=== PATIENT | female | born 1970 | race Caucasian/White ===

== ENCOUNTER 2017-11-14 13:26 | Emergency (ER) | payer OTHER ==
--- NOTE | 2017-11-14 14:42 | RAD ---
INDICATION: Right wrist injury. TECHNIQUE: 2 views of the right wrist were obtained. FINDINGS: There is prominent diffuse soft tissue swelling. There is an oblique comminuted fracture of the distal metaphysis of the radius. The distal fracture fragment is displaced one shaft diameter anterior. The fracture fragments are overriding and there is anterior angulation of the distal fragment relative the proximal fragment. There is also a slightly displaced fracture of the distal ulna including avulsion of the ulnar styloid process. IMPRESSION: 1. OBLIQUE, COMMINUTED, DISPLACED, ANGULATED FRACTURE OF THE DISTAL RADIAL METAPHYSIS. 2. FRACTURE OF THE DISTAL ULNA.
[2017-11-14] MEDS ORDERED: KETAMINE HCL* 50 MG/ML 10 ML VIAL IV ONE (14:47)
[2017-11-14] MEDS ORDERED: Ondansetron INJ* 2 MG/ML VIAL ONE (15:19)
--- NOTE | 2017-11-14 15:47 | ED ---
Upper Extremity Pain - HPI Summary HPI Summary: Patient is a 47 y/o F BIBA w/ c/o right wrist pain onsetting today D[facility] [employer] [facility]. EMS provided 10mg of morphine IM and 4mg of zofran PO. She states she was walking in a park, tripped, and landed on car park cement. She landed on her right wrist. Patient is right handed. She notes abrasion to the wrist and states she cannot move her fingers but is capable of feeling touch. Right knee abrasion is noted as well. On triage, pain is rated 8/10 and it is noted that movement aggravates pain, nothing is noted to alleviate Sx. Home medications and allergies are reviewed. PMHx of multiple sclerosis is reported, diabetes is denied. She cannot remember date of her last tetanus shot. - History of Current Complaint Chief Complaint: EDExtremityUpper Stated Complaint: FALL Time Seen by Provider: 11/14/17 13:27 Hx Obtained From: Patient Mechanism Of Injury: Fall From A Standing Position Onset/Duration: Still Present Timing: Constant Severity Currently: Severe - 8/10 on triage Pain Location: Wrist - right wrist Aggravating Factor(s): Movement Alleviating Factor(s): Nothing - Allergies/Home Medications Allergies/Adverse Reactions: Allergies Allergy/AdvReac Type Severity Reaction Status Date / Time No Known Allergies Allergy Verified 11/14/17 14:24 Home Medications: Home Medications Dexamethasone 11/14/17 [History] Fluoxetine 11/14/17 [History] Ocrevus 11/14/17 [History] Omeprazole 20 mg PO DAILY 11/14/17 [History Confirmed 11/14/17] PARoxetine HCL TAB* [Paxil TAB*] 20 mg PO DAILY 11/14/17 [History Confirmed ] Wellbutrin Sr 11/14/17 [History] PMH/Surg Hx/FS Hx/Imm Hx Endocrine/Hematology History: Denies: Hx Diabetes Sensory History: Denies: Hx Legally Blind Opthamlomology History: Denies: Hx Legally Blind Neurological History: Reports: Other Neuro Impairments/Disorders - multiple sclerosis - Immunization History Date of Tetanus Vaccine: 2014 Infectious Disease History: No Infectious Disease History: Denies: Traveled Outside the [place] in Last 30 Days - Family History Known Family History: Negative: Blood Disorder - Social History Alcohol Use: Occasionally Substance Use Type: Reports: None Smoking Status (MU): Never Smoked Tobacco Review of Systems Negative: Fever - on vitals, temp is 97.7 F Positive: Other - right wrist pain Positive: Other - abrasion at right wrist and right knee All Other Systems Reviewed And Are Negative: Yes Physical Exam - Summary Physical Exam Summary: Appearance: Well appearing, no pain distress Skin: warm, dry, reflects adequate perfusion; right knee abrasion and right wrist abrasion Head/face: normal Eyes: EOMI, ZAMZAM ENT: normal Neck: supple, non-tender Respiratory: CTA, breath sounds present Cardiovascular: RRR, pulses symmetrical Abdomen: non-tender, soft Bowel Sounds: present Musculoskeletal: tender diffusely at right wrist and deformity at right wrist with swelling; abrasion at right forearm with some dirt in it; limited range of motion at right wrist Neuro: normal, sensory motor intact, A&Ox3, intact light touch and two point touch Triage Information Reviewed: Yes Vital Signs On Initial Exam: Initial Vitals Temp Pulse Resp BP Pulse Ox 97.7 F 86 16 102/62 97 11/14/17 13:34 11/14/17 13:34 11/14/17 13:34 11/14/17 13:34 11/14/17 13:34 Vital Signs Reviewed: Yes Procedures - Procedure Summary Procedure Summary: Procedural sedation: The patient was consented and a timeout was performed. An IV was placed and the patient was placed on full cardiopulmonary monitoring and including end-tidal CO2. She was given 1 mg/kg of ketamine for a total of 100 mg. This provided adequate analgesia, anesthesia allowing the orthopedic surgeon to successfully perform the fracture reduction without incident. She tolerated this well and recovered uneventfully. - Joint Reduction Right Conscious Sedation: Yes Diagnostics - Vital Signs Vital Signs Temp Pulse Resp BP Pulse Ox 11/14/17 13:34 97.7 F 86 16 102/62 97 - Laboratory Lab Statement: Any lab studies that have been ordered have been reviewed, and results considered in the medical decision making process. - Radiology right wrist x-ray Xray Interpretation: Positive (See Comments) Radiology Interpretation Completed By: Radiologist - IMPRESSION: 1. OBLIQUE, COMMINUTED, DISPLACED, ANGULATED FRACTURE OF THE DISTAL RADIAL METAPHYSIS. 2. FRACTURE OF THE DISTAL ULNA. THIS REPORT WAS REVIEWED BY ED PHYSICIAN. right wrist x-ray sp external reduction Xray Interpretation: Positive (See Comments) Radiology Interpretation Completed By: Radiologist - IMPRESSION: STATUS POST EXTERNAL REDUCTION, IMPROVED ALIGNMENT AND POSITIONING OF THE FRACTURE FRAGMENTS. THIS REPORT WAS REVIEWED BY ED PHYSICIAN right forearm x-ray Xray Interpretation: Positive (See Comments) Radiology Interpretation Completed By: Radiologist - IMPRESSION: COMMINUTED FRACTURES OF THE DISTAL RADIUS AND ULNA, STATUS POST EXTERNAL REDUCTION. THIS REPORT WAS REVIEWED BY ED PHYSICIAN. Re-Evaluation - Re-Evaluation First Eval Re-Evaluation Time: 15:01 Comment: Patient was given tetanus shot. She had been treated for pain DIE [facility]. Dr. Mittal came to ED; he did a closed reduction of the wrist. Dr. Jerez did a conscious sedation. Second Eval Re-Evaluation Time: 16:27 Change: Improved Comment: Closed reduction of patient's wrist produced improvement; she will be discharged to home and follow up with Dr. Mittal. She is agreeable with this plan. Course/Dx - Course Course Of Treatment: Patient with fracture deformity and dislocation of the ulnar carpal joint. She was given tetanus shot and had been treated for discomfort by medics prior to arrival. Her wounds were cleansed here. I provided procedural sedation while the orthopedic surgeon successfully reduced the fracture. He will follow her up for possible operative plan - Diagnoses Provider Diagnoses: Fracture of right wrist, Dislocation of right wrist, Abrasions of multiple sites - Physician Notifications Discussed Care of Patient With: Nathaniel Mittal Time Discussed With Above Provider: 14:28 Instructed by Provider To: Other - Dr. Mittal was consulted on patient's case at 1428; he will come to see patient in person. Discharge - Sign-Out/Discharge Documenting (check all that apply): Patient Departure - discharge - Discharge Plan Condition: Improved Disposition: HOME Prescriptions: Hydrocodone/Acetaminophen [Hydrocodone-Acetamin 5-325 mg] 1 each PO Q6H PRN #12 tablet MDD 4 PRN Reason: Severe Pain Naproxen [Naproxen 500 mg tab] 500 mg PO BID PRN #12 tablet PRN Reason: Pain Patient Education Materials: Wrist Fracture in Adults (ED) Referrals: Nathaniel Mittal MD [Medical Doctor] - Additional Instructions: Keep splint clean and dry. Ice for comfort. Follow up with Dr. Mittal as discussed. Return if worse, new symptoms or other concerns. - Billing Disposition and Condition Condition: IMPROVED Disposition: Home - Attestation Statements Document Initiated by Jeree: Yes Documenting Scribe: Naveen Berry Provider For Whom Scribe is Documenting (Include Credential): Brayan Jerez MD Scribe Attestation: I, Naveen Berry, scribed for Brayan Jerez MD on 11/14/17 at 1854. Scribe Documentation Reviewed: Yes Provider Attestation: The documentation as recorded by the chioibNaveen rodney accurately reflects the service I personally performed and the decisions made by me, Brayan Jerez MD
[2017-11-14] MEDS ORDERED: oxyCODONE/Acetamin 5/325 MG* TAB PO ONE (16:07)
--- NOTE | 2017-11-14 16:21 | RAD ---
INDICATION: Traumatic right wrist fractures status post external reduction. COMPARISON: Comparison is made with a prior study of the same day. TECHNIQUE: 2 views of the right wrist were obtained. FINDINGS: The patient is status post external reduction. The bones are visualized through a fiberglass splint limiting the bony detail. Again note is made of comminuted fractures of the distal radius and ulna. There is significant improvement in alignment and position of the fracture fragments. IMPRESSION: STATUS POST EXTERNAL REDUCTION, IMPROVED ALIGNMENT AND POSITIONING OF THE FRACTURE FRAGMENTS.
--- NOTE | 2017-11-14 16:23 | RAD ---
INDICATION: Right wrist injury status post external reduction. TECHNIQUE: A single view of the right forearm was obtained. FINDINGS: The bones are visualized through a fiberglass splint limiting the bony detail. There are comminuted fractures of the distal radius and ulna. The patient is status post external reduction. No additional fracture is seen. IMPRESSION: COMMINUTED FRACTURES OF THE DISTAL RADIUS AND ULNA, STATUS POST EXTERNAL REDUCTION.
[2017-11-14 16:31] VITALS: BP 167/89
--- NOTE | 2017-11-14 22:38 | CONS ---
EMERGENCY ROOM CONSULT AND PROCEDURE: DATE OF CONSULT: 11/14/17 HISTORY OF PRESENT ILLNESS: I was called to see this 47-year-old female right- hand dominant, who slipped and fell, sustained an injury to her right dominant distal radius on wrist. The patient states that she fell and she complained of deformity and she was appropriately transported to the [facility] Emergency Room where she was evaluated by the ER physician and I was called. PHYSICAL EXAM: It is a well-developed, well-nourished 47-year-old female, alert and oriented x3, in moderate discomfort. She has no right shoulder discomfort or elbow discomfort, but she does complain of a deformity of her right wrist. She was neurovascularly intact. Sensation is intact to all digits ; however, it is painful for her to move her fingers. The patient had peripheral pulses intact. DIAGNOSTIC STUDIES: X-rays of the right elbow revealed there is no fracture dislocation of the elbow, ulnohumeral joint; however, the patient does have a volar displaced distal radius fracture that is also radially angulated. PROCEDURE: I discussed the case with the ER physician, Dr. Jerez and the plan was for her to have conscious sedation and anxiolysis. After conscious sedation and anxiolysis was performed, I performed a manipulative reduction of the patient's right distal radius and ulna. Post reduction films revealed that the distal radius and ulna were in very acceptable position and alignment. PLAN: The plan is that due to the fact [place] She was neurovascularly intact post reduction. Splint/cast precautions were given. The patient will be followed [place] and possible surgical intervention may be indicated if the reduction is not maintained. All the patient's questions and her family's questions were answered to their full satisfaction. [id number]/[facility] #: [id number] EMILY
== END 2017-11-14 16:29 | disposition home or self-care (01) ==
LOC: ED 13:26
CPT/HCPCS: A9270-GY; J2405